=== PATIENT | male | born 1995 | race Caucasian/White ===

== ENCOUNTER → 2018-04-09 | Outpatient (RCR) | payer OTHER ==
[2018-04-02 11:19] LABS: HEMATOCRIT 42.5 % (38.2-49.6); HEMOGLOBIN 14.6 g/dL (14.0-18.0); MEAN CORPUSCULAR HEMOGLOBIN 28.1 pg (28-32); MEAN CORPUSCULAR HGB CONC 34.4 g/dL (31-35); MEAN CORPUSCULAR VOLUME 81.9 fL (81-99); PLATELET COUNT 217 x10e3/uL (140-360); RED BLOOD COUNT 5.19 x10e6/uL (4.3-5.7); RED CELL DISTRIBUTION WIDTH 12.4 % (11.7-14.4)
--- NOTE | 2018-04-02 11:35 | Diagnostic Imaging Report ---
Exam: left knee 3 views History: pain Comparison: None. Findings: No fracture or malalignment. Joint spaces preserved. No abnormal soft tissue calcification or soft tissue defect. Impression: No acute osseous abnormality Signed by: Dr. Steven Meyer M.D. on 04/02/2018 11:32 AM
[2018-04-02 11:41] LABS: ALANINE AMINOTRANSFERASE 24 IU/L (0-55); ALBUMIN 4.2 g/dL (3.5-5.0); ALBUMIN/GLOBULIN RATIO 1.7 (0.8-2.0); ALKALINE PHOSPHATASE 68 IU/L (40-150); BLOOD UREA NITROGEN 16 mg/dL (7-26); BUN/CREATININE RATIO 16 (6-25); CALCIUM 9.6 mg/dL (8.4-10.2); CARBON DIOXIDE 27 mmol/L (22-29); CHLORIDE 101 mmol/L (98-107); CREATININE, SERUM 0.97 mg/dL (0.72-1.25); EST GLOMERULAR FILTRATION RATE > 60 ML/MIN (60-); GLUCOSE 86 mg/dL (74-118); SODIUM 137 mmol/L (136-145)
[~2018-04-09] MED LIST: COLLAGENASE OINTMENT 30 GM TUBE ONE; LIDOCAINE/PRILOCAINE 2.5-2.5% KIT ONE; MUPIROCIN 2% OINT 22 GM TUBE ONE
== END ==
LOC: WCC 04-02 09:10 → RAD 10:28
PROVIDERS: ATTEND Family Medicine
DX: M25.562 Pain in left knee (principal)
CPT/HCPCS: 36415; 80053; 84134; 85007; 85027; 87071; 87075; 87205

== ENCOUNTER 2018-05-07 11:12 | Outpatient (RCR) | payer OTHER ==
[~2018-05-07 11:12] MED LIST changes: -COLLAGENASE OINTMENT 30 GM TUBE ONE; -MUPIROCIN 2% OINT 22 GM TUBE ONE
[2018-05-07] MEDS ORDERED: LIDOCAINE/PRILOCAINE 2.5-2.5% KIT ONE (11:57)
[2018-05-07] MEDS ORDERED: COLLAGENASE OINTMENT 30 GM TUBE ONE (11:57)
[2018-05-07] MEDS ORDERED: MUPIROCIN 2% OINT 22 GM TUBE ONE (11:57)
== END 2018-05-09 ==
LOC: WCC 11:12
PROVIDERS: ATTEND Family Medicine
DX: S81.002A Unspecified open wound, left knee, initial encounter (principal); S81.001A Unspecified open wound, right knee, initial encounter; T24.221A Burn of second degree of right knee, initial encounter; T24.222A Burn of second degree of left knee, initial encounter; Y92.410 Unspecified street and highway as the place of occurrence of the external cause
CPT/HCPCS: 87071; 87075; 87205

== ENCOUNTER 2018-05-21 11:45 | Outpatient (RCR) | payer OTHER ==
--- NOTE | 2018-05-21 12:25 | Diagnostic Imaging Report ---
LEFT KNEE - 3 VIEWS HISTORY: Open wound COMPARISON: Left knee radiographs April 02, 2018 FINDINGS: Bones: No acute displaced fracture. No aggressive osseous lesion. Joints: Osseous alignment is within normal limits. The joint spaces are well-maintained. Soft tissues: The soft tissues appear unremarkable. IMPRESSION: 1. No acute radiographic abnormality. 2. No significant interval change. Signed by: Dr. Eladio Johnson D.O., M.M.M. on 05/21/2018 12:22 PM
== END 2018-06-09 ==
LOC: RAD 11:45
PROVIDERS: ATTEND Family Medicine
DX: S81.002A Unspecified open wound, left knee, initial encounter (principal)

== ENCOUNTER 2018-06-05 08:40 | Outpatient (RCR) | payer OTHER ==
[2018-05-14 13:07] LABS: BASOPHILS % 0.8 % (0.0-1.0); EOSINOPHILS # (AUTO) 0.1 (0.0-0.4); EOSINOPHILS % 2.3 % (0.0-6.0); HEMATOCRIT 41.8 % (38.2-49.6); HEMOGLOBIN 14.5 g/dL (14.0-18.0); LYMPHOCYTES # (AUTO) 1.6 (1.0-3.2); LYMPHOCYTES % 30.8 % (18.0-39.1); MEAN CORPUSCULAR HEMOGLOBIN 28.2 pg (28-32); MEAN CORPUSCULAR HGB CONC 34.7 g/dL (31-35); MEAN CORPUSCULAR VOLUME 81.3 fL (81-99); MONOCYTES # (AUTO) 0.5 (0.2-0.8); MONOCYTES % 8.9 % (4.4-11.3); NEUTROPHILS % 57.2 % (38.7-80.0); PLATELET COUNT 198 x10e3/uL (140-360); RED BLOOD COUNT 5.14 x10e6/uL (4.3-5.7); RED CELL DISTRIBUTION WIDTH 12.7 % (11.7-14.4)
[2018-05-14 13:26] LABS: ALANINE AMINOTRANSFERASE 21 IU/L (0-55); ALBUMIN 4.1 g/dL (3.5-5.0); ALBUMIN/GLOBULIN RATIO 1.5 (0.8-2.0); ALKALINE PHOSPHATASE 73 IU/L (40-150); BLOOD UREA NITROGEN 15 mg/dL (7-26); BUN/CREATININE RATIO 17 (6-25); CALCIUM 9.4 mg/dL (8.4-10.2); CARBON DIOXIDE 26 mmol/L (22-29); CHLORIDE 104 mmol/L (98-107); EST GLOMERULAR FILTRATION RATE > 60 ML/MIN (60-); GLUCOSE 89 mg/dL (74-118); SODIUM 138 mmol/L (136-145)
[~2018-06-05 08:40] MED LIST changes: +COLLAGENASE OINTMENT 30 GM TUBE ONE; +LIDOCAINE VISC 2% SOLN 15 ML UDC ONE; +MUPIROCIN 2% OINT 22 GM TUBE ONE
== END 2018-06-09 ==
LOC: WCC 08:40
PROVIDERS: ATTEND Family Medicine
DX: S81.002A Unspecified open wound, left knee, initial encounter (principal); T24.222A Burn of second degree of left knee, initial encounter; T24.221A Burn of second degree of right knee, initial encounter; Y92.410 Unspecified street and highway as the place of occurrence of the external cause
CPT/HCPCS: 36415; 80053; 85025

== ENCOUNTER 2018-07-09 09:55 | Outpatient (RCR) | payer OTHER ==
[~2018-07-09 09:55] MED LIST changes: -COLLAGENASE OINTMENT 30 GM TUBE ONE; -LIDOCAINE VISC 2% SOLN 15 ML UDC ONE
[2018-07-09] MEDS ORDERED: LIDOCAINE/PRILOCAINE 2.5-2.5% KIT ONE (14:01)
[2018-07-09] MEDS ORDERED: MUPIROCIN 2% OINT 22 GM TUBE ONE (14:01)
== END 2018-07-10 ==
LOC: WCC 09:55
PROVIDERS: ATTEND Family Medicine
DX: S81.002A Unspecified open wound, left knee, initial encounter (principal); T24.222A Burn of second degree of left knee, initial encounter; T24.221A Burn of second degree of right knee, initial encounter; Y92.410 Unspecified street and highway as the place of occurrence of the external cause

== ENCOUNTER → 2018-07-09 | Outpatient (CLI) | payer OTHER | LOC: RAD 14:10 | PROVIDERS: ATTEND Family Medicine | DX: T24.222A Burn of second degree of left knee, initial encounter (principal) | CPT/HCPCS: 93971 ==

== ENCOUNTER 2018-08-06 10:08 | Outpatient (RCR) | payer OTHER ==
[2018-08-06] MEDS ORDERED: MUPIROCIN 2% OINT 22 GM TUBE ONE (13:53)
[2018-08-06] MEDS ORDERED: LIDOCAINE/PRILOCAINE 2.5-2.5% KIT ONE (13:53)
== END 2018-08-07 ==
LOC: WCC 10:08
PROVIDERS: ATTEND Family Medicine
DX: S81.002A Unspecified open wound, left knee, initial encounter (principal); T24.222A Burn of second degree of left knee, initial encounter; T24.221A Burn of second degree of right knee, initial encounter; Y92.410 Unspecified street and highway as the place of occurrence of the external cause

== ENCOUNTER 2018-08-20 11:57 | Outpatient (RCR) | payer OTHER ==
[2018-08-20] MEDS ORDERED: LIDOCAINE/PRILOCAINE 2.5-2.5% KIT ONE (17:45)
== END 2018-09-07 ==
LOC: WCC 11:57
PROVIDERS: ATTEND Family Medicine
DX: S81.002A Unspecified open wound, left knee, initial encounter (principal); T24.221A Burn of second degree of right knee, initial encounter; T24.222A Burn of second degree of left knee, initial encounter; Y92.410 Unspecified street and highway as the place of occurrence of the external cause